=== PATIENT | female | born 1950 | race Caucasian/White ===

== ENCOUNTER → 2016-10-17 | Outpatient (CLI) | payer OTHER ==
[~2016-10-17] MED LIST: ASCA500 PO; ASPCH81X PO; ASPI81TA28 PO; ATEN25TA PO; ATOR-24 PO; BNC/20125 PO; BNC20 PO; CALC500C70 PO; CHOL20007 PO; CHOL500021 PEG; CITA40TA4 PO; CLB/200 PO; CLOB-65 EXT; CYAN1DRO SL; FERR1TAB PO; LEVO88TA3 PO; MAGN250T3 PO; MULT-506 PO; MULT-580 PO; OXYC-57 PO; PREG1CAP36 PO; RXC5 PO; SENNTAB23 PO; SIMV40TA4 PO; TRAM-10 PO; [UNRECOGNIZED DRUG - REMARK] PO
== END | disposition home or self-care (01) ==
LOC: C.CPL 15:13
DX: M75.111 Incomplete rotator cuff tear or rupture of right shoulder, not specified as traumatic (principal)

== ENCOUNTER 2016-11-01 05:01 | Day surgery (SDC) | payer OTHER ==
[2016-10-30 09:41] VITALS: Ht 154.9 cm; Wt 99.0 kg
--- NOTE | 2016-10-30 10:42 | PAT Medication Instructions ---
Service Date Oct 30, 2016. Current Home Medication List Ascorbic Acid (Vitamin C), 1 TAB PO QAM Aspirin (Aspirin Ec), 81 MG PO QAM Atenolol (Tenormin), 25 MG PO QAM Atorvastatin (Lipitor), 40 MG PO QAM Calcium/Vitamin D (Os-Chandana 500 Plus D), 2 TAB PO QAM Celecoxib (CeleBREX), 1 CAP PO DAILY PRN for Pain Cholecalciferol (Vitamin D3), 1 TAB PEG QAM Citalopram (Citalopram Hydrobromide), 1 TAB PO QAM Clobetasol Propionate 0.05% (Temovate 0.05%), 1 APPLN EXT UD PRN for PRN Cyanocobalamin (Vitamin B12), 1 DOSE SL QAM Ferrous Sulfate Dried (Slow Release Iron), 45 MG PO BIWEEKLY Levothyroxine Sodium (Levothyroxine Sodium), 1 TAB PO QAM Magnesium (Magnesium 250 mg), 1 TAB PO QAM Multivitamin (Multivitamin), 1 TAB PO QAM Olmesartan Medoxomil (Benicar), 5 TAB PO QAM Pregabalin (Lyrica), 25 MG PO BID Sennosides-Docusate Sodium (Stool Softener), 1 TAB PO DAILY PRN for Constipation Simvastatin (Zocor), 40 MG PO QPM Tramadol (Ultram), 1-2 TAB PO Q4H PRN for Pain Medication Instructions For Your Scheduled Surgery - Held per surgeon's instructions: Aspirin (Aspirin Ec), 81 MG PO QAM Celecoxib (CeleBREX), 1 CAP PO DAILY PRN for Pain - Hold the following medications 24 hours prior to surgery: Clobetasol Propionate 0.05% (Temovate 0.05%), 1 APPLN EXT UD PRN for PRN - Hold the following medications the morning of surgery: Ascorbic Acid (Vitamin C), 1 TAB PO QAM Calcium/Vitamin D (Os-Chandana 500 Plus D), 2 TAB PO QAM Cholecalciferol (Vitamin D3), 1 TAB PO QAM Cyanocobalamin (Vitamin B12), 1 DOSE SL QAM Ferrous Sulfate Dried (Slow Release Iron), 45 MG PO BIWEEKLY Magnesium (Magnesium 250 mg), 1 TAB PO QAM Multivitamin (Multivitamin), 1 TAB PO QAM Olmesartan Medoxomil (Benicar), 5 TAB PO QAM Sennosides-Docusate Sodium (Stool Softener), 1 TAB PO DAILY PRN for Constipation - Take the following medications the morning of surgery with a sip of water OTHERWISE NOTHING TO EAT OR DRINK AFTER MIDNIGHT: Atenolol (Tenormin), 25 MG PO QAM Levothyroxine Sodium (Levothyroxine Sodium), 1 TAB PO QAM Citalopram (Citalopram Hydrobromide), 1 TAB PO QAM Pregabalin (Lyrica), 25 MG PO BID Tramadol (Ultram), 1-2 TAB PO Q4H PRN for Pain (may take if needed up to 4 hours prior to surgery) - Take the following medications as scheduled the night before surgery: Pregabalin (Lyrica), 25 MG PO BID Simvastatin (Zocor), 40 MG PO QPM Tramadol (Ultram), 1-2 TAB PO Q4H PRN for Pain If you have any questions please call us at [phone] or [phone] or [phone]
[2016-10-30 11:30] LABS: BASO % 0.5 %; BASO ABS # 0.05 K/uL (0-0.2); COMPLETE YES; EOS % 2.3 %; HEMATOCRIT 39.1 % (37-47); IG% 0.2 %; LYMPH % 24.9 %; LYMPH ABS # 2.35 K/uL (1.2-3.4); MEAN CELL VOLUME 86.7 fL (80-100); MEAN CORPUSCULAR HEMOGLOBIN 27.9 pg (25-34); MEAN CORPUSCULAR HGB CONC 32.2 g/dl (32-36); MEAN PLATELET VOLUME 9.4 fL (7.4-10.4); MONO % 7.8 %; NEUT % 64.3 %; PLATELET COUNT 295 K/uL (130-400); RED BLOOD COUNT 4.51 M/uL (4.2-5.4); WHITE BLOOD COUNT 9.44 K/uL (4.8-10.8)
[2016-10-30 11:40] LABS: URINE APPEARANCE CLEAR (CLEAR); URINE BILIRUBIN NEG (NEG); URINE COLOR YELLOW; URINE EPITHELIAL CELL AUTO 20-30 /lpf (0-5); URINE NITRITE NEG (NEG); URINE PH 5.5 (4.5-7.5); URINE SPECIFIC GRAVITY 1.018 (1.000-1.030); UROBILINOGEN NEG (NEG)
[2016-10-30 11:45] LABS: MANUAL MICROSCOPIC REQUIRED? NO; REVIEW REQ? NO
[2016-10-30 11:53] LABS: BUN/CREATININE RATIO 15.7 (10-20); CALCIUM 8.8 mg/dl (8.5-10.1); CREATININE 0.98 mg/dl (0.60-1.20); POTASSIUM 4.3 mmol/L (3.5-5.1)
--- NOTE | 2016-10-31 10:51 | HISTORY & PHYSICAL EXAMINATION ---
DATE OF ADMISSION: 11/01/2016 CHIEF COMPLAINT: Left shoulder pain. HISTORY OF PRESENT ILLNESS: The patient is a 66-year-old female seen and evaluated in our office for left shoulder pain. Initially, she was treated conservatively with a subacromial injection. She continues to have ongoing pain and disability. An MRI was ordered and is concerning for partial thickness versus small full thickness rotator cuff tear. She is now scheduled for left shoulder arthroscopy, subacromial decompression, distal clavicle excision and possible rotator cuff repair. Due to her history of being a difficult intubation, her procedure is to be performed at the hospital. PAST MEDICAL HISTORY: Hypertension, hypercholesterolemia, irregular heartbeat, depression, hypothyroidism, osteoarthritis, obesity. PAST SURGICAL HISTORY: Left hip arthroplasty, gastric bypass, D&C, cystoscopy, cardiac ablation. MEDICATIONS: Levoxyl 88 mcg daily, citalopram 40 mg daily, atenolol 25 mg daily, Benicar 20 mg daily, simvastatin 40 mg daily, multivitamin daily, vitamin B complex daily, calcium daily, aspirin 81 mg daily, vitamin D3 daily, docusate sodium p.r.n., slow release iron daily. ALLERGIES: PENICILLIN CAUSES SWELLING AND REDNESS. SOCIAL HISTORY AND REVIEW OF SYSTEMS: Noncontributory. PHYSICAL EXAMINATION: GENERAL: Well-nourished, well-developed female who appears her stated age. HEAD, EYES, EARS, NOSE, AND THROAT: Normocephalic, atraumatic, extraocular movements intact, oropharynx pink and moist. NECK: Supple without adenopathy. LUNGS: Clear to auscultation bilaterally. HEART: Regular rate and rhythm. ABDOMEN: Soft, nontender, nondistended, obese. EXTREMITIES: The left shoulder demonstrates full active painful range of motion. There is some mild weakness and pain in the rotator cuff with resistive testing. X-RAYS: Her plain films and MRI are reviewed. The MRI is concerning for a partial thickness versus possible small full thickness rotator cuff tear. There is evidence of AC joint arthritis. ASSESSMENT: Left shoulder impingement syndrome, acromioclavicular joint arthritis, possible rotator cuff tear. PLAN: Risks versus benefits were discussed. Consent was obtained. The patient's primary care physician is Josephine Cortes PA-C. Will proceed with left shoulder arthroscopy upon preoperative workup and medical clearance.
[~2016-11-01] VITALS: Ht 154.9 cm; Wt 99.0 kg
[~2016-11-01 05:01] MED LIST changes: -ASPCH81X PO; -ATOR-24 PO; -BNC/20125 PO; -CHOL20007 PO; -CITA40TA4 PO; -MULT-580 PO; -OXYC-57 PO; -PREG1CAP36 PO; -RXC5 PO; -[UNRECOGNIZED DRUG - REMARK] PO
[2016-11-01] MEDS ORDERED: CHOL20007 PO (05:44)
[2016-11-01 05:45] VITALS: PULSE 65; TEMP 36.7; O2SAT 97
[2016-11-01] MEDS ORDERED: CLINDAMYCIN PHOS 150 MG/ML 2 ML VIAL IV SCH (06:00)
[2016-11-01] MEDS ORDERED: LACTATED RINGER'S 1000ML 1,000 ML IV SCH (06:00)
[2016-11-01] MEDS ORDERED: CLINDAMYCIN 600 MG/54 ML D5W IV SCH (06:00)
[2016-11-01] MEDS ORDERED: ROPIVACAINE 0.5% 5 MG/ML 30 ML VIAL ONE (06:16)
[2016-11-01] MEDS ORDERED: BUPIVACAINE/EPINEPHRINE 0.25% 10 ML VIAL ONE (06:17)
[2016-11-01] MEDS ORDERED: CLONIDINE HCL 100 MCG/ML SYRINGE ONE (06:17)
[2016-11-01] MEDS ORDERED: EpINEphrine HCL INJ 1 MG/ML 5ML SYRINGE ONE (06:37)
[2016-11-01] MEDS ORDERED: FENTANYL CITRATE INJ 50 MCG/1 ML 2 ML VIAL ONE (06:45)
[2016-11-01] MEDS ORDERED: MIDAZOLAM HCL 1 MG/ML 2ML VIAL ONE (06:45)
--- NOTE | 2016-11-01 07:02 | History & Physical Bridge Note ---
H&P Re-Evaluation Bridge Note: I have examined the patient, reviewed the History & Physical and in the interval since the performance of the History & Physical I have noted the following changes of clinical significance: No changes noted
[2016-11-01] MEDS ORDERED: DEXAMETHASONE SOD INJ 4 MG/ML VIAL ONE (07:32)
[2016-11-01] MEDS ORDERED: ONDANSETRON INJ 2 MG/ML 2 ML VIAL ONE (07:32)
[2016-11-01] MEDS ORDERED: PROPOFOL IV EMULSION 10 MG/ML 20 ML VIAL IV ONE (07:32)
[2016-11-01] MEDS ORDERED: EpHEDrine SULFATE 50MG/5ML SYR ONE (07:33)
[2016-11-01] MEDS ORDERED: PHENYLEPHRINE 100MCG/ML 5ML SYR ONE (07:35)
[2016-11-01] MEDS ORDERED: SODIUM CHLORIDE 0.9% 1000ML 1,000 ML IV SCH (07:44)
[2016-11-01] MEDS ORDERED: HYDROCODONE/ACETAMOPHEN 5/325MG TAB PO PRN (07:45)
[2016-11-01] MEDS ORDERED: OXYCODONE/ACETAMINOPHEN 5-325 TAB PO PRN (07:45)
[2016-11-01] MEDS ORDERED: OXYC-57 PO (07:46)
--- NOTE | 2016-11-01 07:48 | Discharge Instructions ---
Discharge Instructions Date of Service Nov 01, 2016. Visit Reason for Visit: Left Shoulder Osteoarthritis Discharge Discharge Diagnosis / Problem: Left shoulder impingement syndrome, AC joint arthritis Discharge Goals Goal(s): Decrease discomfort, Improve function Activity Recommendations Activity Limitations: as noted below Lifting Limitations: gradually increase as tolerated Anesthesia . Post Anesthesia Instructions: If you have had General Anesthesia or IV Sedation: * Do not drive today. * Resume driving when surgeon permits. * Do not make important decisions or sign legal documents today. * Call surgeon for: 1. Temperature elevations greater than 101 degrees F. 2. Uncontrollable pain. 3. Excessive bleeding. 4. Persistent nausea and vomiting. 5. Medication intolerance (nausea, vomiting or rash). * For nausea and vomiting use only clear liquids such as: tea, soda, bouillon until nausea subsides, then gradually increase diet as tolerated. * If you have any concerns or questions, call your surgeon's office. If physician is unavailable and it is an emergency, call 911 or go to the nearest emergency room. . Instructions / Follow-Up Instructions / [place] [facility] [place] SHOULDER ARTHROSCOPY with Distal Clavicle Excision SELF CARE INSTRUCTIONS AFTER: A. You are allowed to use your arm actively as comfort allows. Recommend NOT doing repetitive overhead activity or heavy lifting. B. You should start Physical Therapy within 1-3 days from your surgery. You will be provided a prescription with specific restrictions, if needed, at time of discharge. C. You can discontinue the sling as comfort allows within one to two days after surgery. A. At 48 hours post-operatively, you may change your dressing. . (Leave white steri-strips intact if present). Use band-aids and change daily. You are allowed to shower at this time and get the incision area wet, but DO NOT soak or submerge incision area in water. (No baths, swimming pools, hot tubs) B. Do NOT apply soap or any ointment/lotions directly over incision. C. You may use ice as needed to operative shoulder SPECIAL CARE INSTRUCTIONS: VERY IMPORTANT TO READ AND REVIEW A. There are a few signs you need to watch for after you are home. Call [facility] at [phone] if you experience any of the following: a. Increased severe shoulder pain. Some pain is expected especially when you exercise b. Increased swelling in your shoulder or arm; pain or swelling in either upper extremity. (Note: swelling and stiffness is normal and expected for several weeks post op, depending on type of shoulder surgery you had). c. Any fluid or drainage from the incision; redness of the incision. d. Shortness of breath or chest pain. B. Please call [facility] at [phone] if you have any questions or concerns about your operation or recovery. C. Call your physician if: a. Temperature is greater than 101 degrees (F). b. Pain is not relieved by prescribed pain medications. c. Increase drainage or redness from incision. d. Unanswered questions or concerns. D. Pain Medication: a. You will be prescribed pain medication upon discharge that should last till your first post-operative appointment. b. You may also take Advil or Ibuprofen between medication doses if you do not have any contraindication to taking them. c. You may also take Advil or Ibuprofen in place of your pain medication if the pain is tolerable. d. If you experience nausea and/or skin rash, discontinue this medication and contact our office for an alternative medication. e. Caution- narcotic pain medication can cause constipation. FOLLOW UP VISIT: Please call [facility] at [phone] to schedule a follow up appointment 10-14 days from your surgery date. Diet Recommendations Recommended Home Diet: resume previous diet Pending Studies Studies pending at discharge: no Medical Emergencies . Who to Call and When: Medical Emergencies: If at any time you feel your situation is an emergency, please call 911 immediately. . Non-Emergent Contact Non-Emergency issues call your: Surgeon Call Non-Emergent contact if: temperature is above 101.5, your pain is not controlled, wound has increased drainage, wound has increased redness . . "Provider Documentation" section prepared by Marcell Maciel PA-C. . [place] Drug Monitoring Program Search Results: patient reviewed within database, no issues identified
--- NOTE | 2016-11-01 07:59 | [facility] Post Operative Brief Note ---
Immediate Operative Summary Operative Date Nov 01, 2016. Pre-Operative Diagnosis Left Shoulder Impingement Syndrome, Acromioclavicular Joint Arthritis, Possible Rotator Cuff Tear Post-Operative Diagnosis Left Shoulder Impingement Syndrome, Acromioclavicular Joint Arthritis Procedure(s) Performed Left Shoulder Arthroscopic Subacromial Decompression, Distal Clavicle Excision Surgeon Dr. Dave [employer] Surgeon(s) Marcell Maciel PA-C Estimated Blood Loss 10 cc Findings intact rotater cuff, ac djd Specimens none per surgeon Disposition Recovery Room / PACU
--- NOTE | 2016-11-01 08:13 | OPERATIVE REPORT ---
DATE OF OPERATION: 11/01/2016 PREOPERATIVE DIAGNOSIS: Impingement syndrome and acromioclavicular arthritis, left shoulder. POSTOPERATIVE DIAGNOSIS: Impingement syndrome and acromioclavicular arthritis, left shoulder. PROCEDURE: Arthroscopic subacromial decompression and distal clavicle excision, left shoulder. SURGEON: Dr. Dave. [employer] FORMER SUPERVISOR: Marcell Maciel PA-C. ANESTHESIA: General. COMPLICATIONS: None. Marcell Maciel was the prosthetic assistant in this procedure. He was essential for all portions of the case including positioning, prepping, draping, engineer third assistant, wound closure and dressing application. DESCRIPTION OF PROCEDURE: First a posterolateral incision was used for insertion of the arthroscope. Intra-articular elements were identified. Long head of biceps was intact. Glenohumeral joint was intact and the undersurface rotator cuff showed minimal tendonitis. The arthroscope was then placed in subacromial space where moderate bursitis was encountered. Bursectomy was carried out using 90 degree ablator and a 5.5 mm iqra was used to perform arthroscopic subacromial decompression. Next, the AC joint was inspected and the last centimeter of the distal clavicle was excised using a 5.5 mm iqra creating the distal clavicle excision. The shoulder was drained of excess fluid. Wounds were closed using 4-0 nylon simple sutures. Sterile dressing of Adaptic, 4x4s, ABDs and foam tape was applied. The patient was placed in a sling. She tolerated the procedure well. I attest to the content of the Intraoperative Record and any orders documented therein. Any exception s are noted below.
[2016-11-01 08:55] VITALS: BP 134/80; PULSE 68; TEMP 36.7; O2SAT 96
--- NOTE | 2016-11-01 08:55 | Anesthesiology Progress Note ---
Anesthesia Post Op Note Date & Time Nov 01, 2016 at 08:55 Vital Signs Pain Intensity: 0 Vital Signs Past 12 Hours Date Time Temp Pulse Resp B/P (MAP) Pulse Ox O2 Delivery O2 Flow Rate FiO2 11/01/16 08:47 70 19 11/01/16 08:47 36.2 11/01/16 08:47 70 19 96 11/01/16 08:46 122/79 11/01/16 08:42 70 16 96 11/01/16 08:42 70 16 11/01/16 08:41 125/75 11/01/16 08:37 72 28 11/01/16 08:37 72 28 97 11/01/16 08:36 129/76 11/01/16 08:32 73 21 11/01/16 08:32 72 21 99 11/01/16 08:31 130/75 11/01/16 08:27 75 21 100 11/01/16 08:27 74 21 11/01/16 08:26 131/80 11/01/16 08:22 73 24 11/01/16 08:22 72 24 100 11/01/16 08:21 131/69 11/01/16 08:20 72 17 100 11/01/16 08:20 71 17 100 11/01/16 08:16 119/97 11/01/16 08:15 73 12 11/01/16 08:15 73 12 11/01/16 08:11 128/78 11/01/16 08:10 73 22 100 11/01/16 08:10 73 22 11/01/16 08:06 134/89 11/01/16 08:05 35.9 79 16 134/89 100 Mask 10 11/01/16 08:05 78 21 100 11/01/16 08:05 77 21 11/01/16 05:45 36.7 65 20 97 Room Air Notes Mental Status: alert / awake / arousable, participated in evaluation Pt Amnestic to Procedure: Yes Nausea / Vomiting: adequately controlled Pain: adequately controlled Airway Patency, RR, SpO2: stable & adequate BP & HR: stable & adequate Hydration State: stable & adequate Anesthetic Complications: no major complications apparent
[2016-11-01] MEDS ORDERED: LABETALOL HCL IV 5 MG/ML 20ML IV PRN (09:00)
[2016-11-01] MEDS ORDERED: NALOXONE HCL 0.4 MG/1 ML VIAL/CARP IV PRN (09:00)
[2016-11-01] MEDS ORDERED: EpHEDrine SULFATE INJ 50 MG/ML AMP IV PRN (09:00)
[2016-11-01] MEDS ORDERED: PHENYLEPHRINE 100MCG/ML 5ML SYR IV PRN (09:00)
[2016-11-01] MEDS ORDERED: HYDROmorphone INJ 2 MG/ML SYR/VIAL IV PRN (09:00)
[2016-11-01] MEDS ORDERED: FLUMAZENIL 0.1 MG/1 ML 10 ML VIAL IV PRN (09:00)
[2016-11-01] MEDS ORDERED: FENTANYL CITRATE INJ 50 MCG/1 ML 2 ML VIAL IV PRN (09:00)
[2016-11-01] MEDS ORDERED: MEPERIDINE HCL 25 MG/ML CARP IV PRN (09:00)
[2016-11-01] MEDS ORDERED: ATROPINE SULFATE 0.1 MG/ML 5ML SYR IV PRN (09:00)
[2016-11-01] MEDS ORDERED: ONDANSETRON INJ 2 MG/ML 2 ML VIAL IV PRN (09:00)
[2016-11-01 09:25] VITALS: BP 166/84; PULSE 78; O2SAT 97
[2016-11-01 09:55] VITALS: BP 166/84; PULSE 74; TEMP 36.7; O2SAT 98
== END 2016-11-01 10:00 | disposition home or self-care (01) ==
LOC: C.ACU 05:01
DX: M75.42 Impingement syndrome of left shoulder (principal); M19.012 Primary osteoarthritis, left shoulder; I10 Essential (primary) hypertension; E78.00 Pure hypercholesterolemia, unspecified; E03.9 Hypothyroidism, unspecified; E66.9 Obesity, unspecified; Z96.642 Presence of left artificial hip joint; Z98.84 Bariatric surgery status; I49.9 Cardiac arrhythmia, unspecified; Z79.82 Long term (current) use of aspirin; G47.33 Obstructive sleep apnea (adult) (pediatric); E78.5 Hyperlipidemia, unspecified; Z87.442 Personal history of urinary calculi

== ENCOUNTER 2018-06-03 06:27 | Inpatient (IN) ==
--- NOTE | 2018-04-14 09:03 | PAT Medication Instructions ---
Medication Instructions Date of Service April 14, 2018 Home Medications ascorbic acid (vitamin C) 500 mg PO DAILY aspirin [Aspir-Low] 81 mg PO DAILY atenolol 25 mg PO QAM atorvastatin 40 mg PO PM biotin 2,500 mcg PO DAILY calcium carbonate-vitamin D3 [Calcium 600 + D(3)] 1 cap PO DAILY celecoxib 200 mg PO QAM clindamycin HCl 300 mg PO NEEDED clobetasol 1 applic TOPICAL BID NEEDED cyanocobalamin (vitamin B-12) 1,000 mcg PO DAILY docusate sodium [Stool Softener] 100 mg PO DAILY NEEDED duloxetine 2 tab PO HS duloxetine 1 tab PO QAM ferrous sulfate [iron] 325 mg PO DAILY levothyroxine 88 mcg PO QAM magnesium 250 mg PO DAILY multivitamin with minerals 1 cap PO DAILY olmesartan [Benicar] 10 mg PO QAM pregabalin [Lyrica] 50 mg PO PM Continue as directed clindamycin HCl 300 mg PO NEEDED ASK your surgeon for instructions celecoxib 200 mg PO QAM STOP taking 2 weeks before surgery biotin 2,500 mcg PO DAILY STOP taking 24 hours before surgery clobetasol 1 applic TOPICAL BID NEEDED DO NOT take the morning of surgery ascorbic acid (vitamin C) 500 mg PO DAILY aspirin [Aspir-Low] 81 mg PO DAILY calcium carbonate-vitamin D3 [Calcium 600 + D(3)] 1 cap PO DAILY cyanocobalamin (vitamin B-12) 1,000 mcg PO DAILY docusate sodium [Stool Softener] 100 mg PO DAILY NEEDED ferrous sulfate [iron] 325 mg PO DAILY magnesium 250 mg PO DAILY multivitamin with minerals 1 cap PO DAILY olmesartan [Benicar] 10 mg PO QAM Take morning of surgery With a small sip of water, OTHERWISE NOTHING TO EAT OR DRINK AFTER MIDNIGHT: atenolol 25 mg PO QAM duloxetine 1 tab PO QAM levothyroxine 88 mcg PO QAM Take evening before surgery atorvastatin 40 mg PO PM duloxetine 2 tab PO HS pregabalin [Lyrica] 50 mg PO PM Other Notes If you have any questions please call us at [phone] or [phone] or [phone] or [phone]
--- NOTE | 2018-04-14 11:56 | Anesthesiology Consultation ---
Date of Service April 14, 2018 Assessment & Plan (1) Encounter for pre-operative examination: Chart Review Chart Review: Pending: Refer to Additional Notes / Consult section and Patient seen in Pre Admission Testing Consults Requested medical & cardiac (Dr. Cortes (04/07) and Cardiology (04/25)) Teaching & Discussion Pre-Anesthesia Teaching/Discussion Notes: Instructed NPO after midnight before surgery, except medications with 15 cc of water. Medication instructions provided according to the PAT guidelines. History Surgery Operation Date: 05/06/18 09:15 Proposed Procedures p Right Total Hip Arthroplasty - Octavio Jung DO Height/Weight Height: 5 ft 1 in Weight: 105.7 kg Allergies Allergy/AdvReac Type Severity Reaction Status Date / Time gabapentin AdvReac Mild light Verified 03/07/18 08:30 headed and dizzy Penicillins AdvReac Mild LOCALIZED Verified 03/07/18 08:30 RXN TO INJECTION, TOLERATED PO DOSING Medications Home Medications Medication Instructions Recorded Confirmed Last Taken ascorbic acid (vitamin C) [Vitamin 500 mg PO DAILY 03/07/18 03/07/18 Unknown C] aspirin [Aspir-Low] 81 mg PO DAILY 03/07/18 03/07/18 Unknown atenolol 25 mg PO QAM 03/07/18 03/07/18 Unknown atorvastatin 40 mg PO PM 03/07/18 03/07/18 Unknown biotin 2,500 mcg PO DAILY 03/07/18 03/07/18 Unknown calcium carbonate-vitamin D3 1 cap PO DAILY 03/07/18 03/07/18 Unknown [Calcium 600 + D(3)] celecoxib 200 mg PO QAM 03/07/18 03/07/18 Unknown clindamycin HCl 300 mg PO UD PRN 03/07/18 03/07/18 Unknown clobetasol 1 applic TOPICAL BID PRN 03/07/18 03/07/18 Unknown cyanocobalamin (vitamin B-12) 1,000 mcg PO DAILY 03/07/18 03/07/18 Unknown docusate sodium [Stool Softener] 100 mg PO DAILY PRN 03/07/18 03/07/18 Unknown duloxetine 1 tab PO QAM 03/07/18 04/14/18 Unknown duloxetine 2 tab PO HS 03/07/18 03/07/18 Unknown ferrous sulfate [iron] 325 mg PO DAILY 03/07/18 03/07/18 Unknown levothyroxine 88 mcg PO QAM 03/07/18 03/07/18 Unknown magnesium 250 mg PO DAILY 03/07/18 03/07/18 Unknown multivitamin with minerals 1 cap PO DAILY 03/07/18 03/07/18 Unknown olmesartan [Benicar] 10 mg PO QAM 03/07/18 03/07/18 Unknown pregabalin [Lyrica] 50 mg PO PM 03/07/18 03/07/18 Unknown Past Medical History Medical History Anxiety Atrial fibrillation Depression Hyperlipidemia Hypertension Hypothyroidism Osteoarthritis Peripheral neuropathy Restless leg syndrome Sleep apnea NO DEVICE CURRENTLY "LOST WEIGHT" Spinal stenosis Past Family History Family History Brother Family history of diabetes mellitus Past Surgical History Surgical History Cyst REMOVED ON LEFT EYE Difficult airway for intubation "NOTED TO HAVE DIFFICULTY INTUBATING DURING NODULE REMOVAL BEHIND EAR" PT BELIEVES D/T BEING OVERWEIGHT AT TIME OR SURGERY H/O gastric bypass 2004 History of cardiac radiofrequency ablation 2006 (2 ABLATIONS) AT [facility] History of colonoscopy History of cystoscopy HX OF STRETCHING OF URETHRA History of dilatation and curettage History of ear surgery NODULE REMOVED BEHIND EAR History of shoulder surgery LEFT History of tooth extraction History of total hip arthroplasty LEFT Past Anesthesia History No Hx of Anesthesia Complications, Difficult Airway (Unsure of date or hospital - Knows it was late s or early ) and No Family Hx of Anesthesia Complications History of PONV No Motion Sickness Screening History of Motion Sickness: No Social History Smoking Status: Never smoker Do You Dip or Chew Tobacco: No Hx Alcohol Use: Yes Alcohol type: hard liquor alcohol intake frequency: holidays/special occasions only Hx Substance Use: No substance use type: does not use Exercise / Class Metabolic Activity II 4-5 Yardwork/Stairs/Walk up hill (Able to climb FOS. Denies CP or SOB.) Review of Systems Patient denies chest pain, shortness of breath, dyspnea on exertion, reflux, cough, wheezing, palpitations. +joint pain (knees, hip, wrist) Physical Exam Vital Signs BP: 132/82 P: 57 R: 14 T: 97.4 SPO2: 97% on RA Constitutional + morbidly obese ENMT Thyromental Distance: > or= 3.5 Finger Breadths (4) Mallampati Class: III Neck normal visual inspection, trachea midline and + limited neck extension Respiratory normal respiratory effort Auscultation: lungs clear to auscultation bilaterally Cardiovascular Rate/Rhythm: regular rate and regular rhythm Heart Sounds: no murmur Vessels: no carotid bruit Neurologic moves all extremities Psychiatric Orientation: alert and oriented x 3 Testing Electrocardiogram Date: 04/14/18 Findings: + NSR @ (61) Chest X-Ray Date: 04/14/18 Findings: + NAD Laboratory Results 04/14/18 11:42 04/14/18 11:42 Blood Type A Positive 04/14/18 11:42 Antibody Screen NEGATIVE 04/14/18 11:42 PT 9.8 Seconds (9.0-12.0) 04/14/18 11:42 INR 1.0 (0.9-1.1) 04/14/18 11:42 APTT 24.5 Seconds (21.0-31.0) 04/14/18 11:42 Hemoglobin A1c 5.9 % (4.5-5.6) H 04/14/18 11:42 Urine Color Yellow 04/14/18 Unknown Urine Appearance Clear (Clear) 04/14/18 Unknown Urine pH 6.0 (4.5-7.5) 04/14/18 Unknown Ur Specific [place] 1.009 (1.000-1.030) 04/14/18 Unknown Urine Protein Negative (Negative) 04/14/18 Unknown Urine Glucose (UA) Negative (Negative) 04/14/18 Unknown Urine Ketones Negative (Negative) 04/14/18 Unknown Urine Nitrite Negative (Negative) 04/14/18 Unknown Ur Leukocyte Esterase 3+ (Negative) H 04/14/18 Unknown Urine WBC (Auto) 10-30 /hpf (0-5) H 04/14/18 Unknown Urine RBC (Auto) 0-4 /hpf (0-4) 04/14/18 Unknown U Hyaline Cast (Auto) 0 /lpf (0-5) 04/14/18 Unknown U Epithel Cells (Auto) 20-30 /lpf (0-5) H 04/14/18 Unknown Urine Bacteria (Auto) Negative (Negative) 04/14/18 Unknown 04/14/18 Unknown Urine Culture - Preliminary Urine,Clean Catch Alpha strep. not enterococcus
[2018-04-14 12:05] LABS: Basophils # (auto) 0.02 K/uL (0-0.2); Basophils % (auto) 0.3 %; Eosinophils # (auto) 0.24 K/uL (0-0.5); Eosinophils % (auto) 3.2 %; Hematocrit (blood only) 40.6 % (37-47); Hemoglobin 12.8 g/dL (12.0-16.0); Immature Granulocytes # (auto) 0.01 K/uL (0.00-0.02); Immature Granulocytes % (auto) 0.1 %; Lymphocytes # (auto) 1.82 K/uL (1.2-3.4); Mean Corpuscular Hgb Conc 31.5 g/dL (32-36); Mean Corpuscular Volume 89.6 fL (80-100); Mean Platelet Volume 9.5 fL (7.4-10.4); Monocytes # (auto) 0.53 K/uL (0.11-0.59); Neutrophils # (auto) 4.96 K/uL (1.4-6.5); Neutrophils % (auto) 65.4 %; Platelet Count 215 K/uL (130-400); RDW Coefficient of Variation 13.6 % (11.5-14.5); Red Blood Count 4.53 M/uL (4.2-5.4); White Blood Count 7.58 K/uL (4.8-10.8)
[2018-04-14 12:17] LABS: Partial Thromboplastin Ratio 0.9; Partial Thromboplastin Time 24.5 Seconds (21.0-31.0); Prothrombin Time 9.8 Seconds (9.0-12.0)
[2018-04-14 12:38] LABS: Estimated Average Glucose 123 mg/dl; Hemoglobin A1C 5.9 % (4.5-5.6)
[2018-04-14 13:14] LABS: Appearance Urine Clear (Clear); Bacteria Urine Automated Negative (Negative); Bilirubin Urine Negative (Negative); Blood Urine Negative (Negative); Cast Urine Automated 0 /lpf (0-5); Color Urine Yellow; Epithelial Cell Urine Auto 20-30 /lpf (0-5); Glucose Urine UA Negative (Negative); Ketones Urine Negative (Negative); Leukocyte Esterase Urine 3+ (Negative); Nitrite Urine Negative (Negative); Protein Urine Negative (Negative); RBC Urine Automated 0-4 /hpf (0-4); Specific Gravity Urine 1.009 (1.000-1.030); Urobilinogen Urine Negative (Negative)
--- NOTE | 2018-04-14 13:15 | XRay Report ---
XR chest Pre-admission PA/Lat CLINICAL HISTORY: pat preoperative evaluation COMPARISON STUDY: No previous studies for comparison. FINDINGS: The bones soft tissues and hemidiaphragms are normal. The cardiomediastinal silhouette is n ormal. The lungs are clear. The pulmonary vasculature is normal. IMPRESSION: Negative chest. The above report was generated using voice recognition software. It may contain grammatical, syntax or spelling errors. Electronically signed by: Ed Forrester M.D. 04/14/2018 1:13 PM
[2018-04-14 13:18] LABS: BUN Creatinine Ratio 19.1 (10-20); Calcium 8.5 mg/dl (8.5-10.1); Creatinine Clr Calc Pharmacy 73.8 ml/min; Est GFR (African American) 83.9; Est GFR (Non-African American) 72.4; Potassium 4.1 mmol/L (3.5-5.1)
--- NOTE | 2018-06-02 15:10 | History & Physical Report ---
Date of Service June 02, 2018 Assessment & Plan (1) Degenerative joint disease (DJD) of hip: I have indicated the patient for right posterior total hip replacement. The risks, benefits and complications of surgery were explained to the patient which include but not limited to infection, acute blood loss, DVT/PE, injury to nerves, vessels, bone, soft tissue, arthrofibrosis, chronic pain, failure of the prosthesis, hip dislocation, leg length discrepancy, need for additional surgery, cardiac and pulmonary events and . The patient wished to proceed with surgery and informed consent was obtained at this time. We will plan for ASA BID post-operatively for DVT prophylaxis. Upon discharge the patient will be discharged home with home health services. Appropriate clearances by PCP, Cardio were obtained. History of Present Illness Chief Complaint: Right hip pain/djd Primary Care Provider: HAZEL Braxton The patient is a 67 year old female who presents with complaints of severe right hip pain and DJD. The patient has failed outpatient conservative treatments to this point which included Nsaids, [place] corticosteroid inj, home exercise/walking program. The patient's pain and limited function have progressed to the point where they severely hinder their activities of daily living and they no longer tolerate exercise programs. They are requesting to proceed with total hip replacement surgery. Allergies Allergy/AdvReac Type Severity Reaction Status Date / Time gabapentin AdvReac Mild light Verified 05/23/18 08:44 headed and dizzy Penicillins AdvReac Mild LOCALIZED Verified 05/23/18 08:44 RXN TO INJECTION, TOLERATED PO DOSING Home Medications Home Medications Medication Instructions Recorded Confirmed Type ascorbic acid (vitamin C) [Vitamin 500 mg PO DAILY 03/07/18 05/23/18 History C] aspirin [Aspir-Low] 81 mg PO DAILY 03/07/18 05/23/18 History atenolol 25 mg PO QAM 03/07/18 05/23/18 History atorvastatin 40 mg PO PM 03/07/18 05/23/18 History biotin 2,500 mcg PO DAILY 03/07/18 05/23/18 History calcium carbonate-vitamin D3 1 cap PO DAILY 03/07/18 05/23/18 History [Calcium 600 + D(3)] celecoxib 200 mg PO QAM 03/07/18 05/23/18 History clindamycin HCl 300 mg PO UD PRN 03/07/18 05/23/18 History clobetasol 1 applic TOPICAL BID PRN 03/07/18 05/23/18 History cyanocobalamin (vitamin B-12) 1,000 mcg PO DAILY 03/07/18 05/23/18 History docusate sodium [Stool Softener] 100 mg PO DAILY PRN 03/07/18 05/23/18 History duloxetine 1 tab PO QAM 03/07/18 05/23/18 History duloxetine 2 tab PO HS 03/07/18 05/23/18 History ferrous sulfate [iron] 325 mg PO DAILY 03/07/18 05/23/18 History levothyroxine 88 mcg PO QAM 03/07/18 05/23/18 History magnesium 250 mg PO DAILY 03/07/18 05/23/18 History multivitamin with minerals 1 cap PO DAILY 03/07/18 05/23/18 History olmesartan [Benicar] 10 mg PO QAM 03/07/18 05/23/18 History pregabalin [Lyrica] 50 mg PO PM 03/07/18 05/23/18 History Past Med/Surg History Medical History Anxiety Atrial fibrillation Depression Hyperlipidemia Hypertension Hypothyroidism Osteoarthritis Peripheral neuropathy Restless leg syndrome Sleep apnea NO DEVICE CURRENTLY "LOST WEIGHT" Spinal stenosis Surgical History Cyst REMOVED ON LEFT EYE Difficult airway for intubation "NOTED TO HAVE DIFFICULTY INTUBATING DURING NODULE REMOVAL BEHIND EAR" PT BELIEVES D/T BEING OVERWEIGHT AT TIME OR SURGERY H/O gastric bypass 2004 History of cardiac radiofrequency ablation 2006 (2 ABLATIONS) AT 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 Constitutional: WD/WN, vitals as above Eyes: PERRL, conjunctivae normal, anicteric sclerae ENMT: external ear and nose normal, oropharynx normal Neck: trachea midline, no thyromegaly Respiratory: normal respiratory effort, lungs clear to auscultation Cardiovascular: RRR, no murmur, no edema Gastrointestinal (Abdomen): normal bowel sounds, soft, nontender, no hepatosplenomegaly Musculoskeletal: no cyanosis or clubbing, extremities motor strength 5/5 Skin: no rashes, warm and dry Neurologic: patellar DTR's 2+ bilat, sensation intact Psychiatric: A+Ox3, euthymic affect Lymphatic: no cervical or axillary lymphadenopathy Results & Data Diagnostic Findings Multiple views of the hip demonstrates severe DJD with complete loss of the joint space. +osteophytes, +sclerosis, +subchondral cysts.
[~2018-06-03 06:27] MED LIST changes: +ACETAMINOPHEN 500 MG TAB PO SCH; -ASCA500 PO; -ASPI81TA28 PO; -ATEN25TA PO; -BNC20 PO; -CALC500C70 PO; -CHOL500021 PEG; -CLB/200 PO; +CLINDAMYCIN 600 MG/54 ML BAG IV SCH; -CLOB-65 EXT; -CYAN1DRO SL; +CeleBREX 200 MG CAP PO SCH; +FAMOTIDINE 20 MG TAB PO SCH; -FERR1TAB PO; -LEVO88TA3 PO; +LR 500ML BOLUS, THEN 15ML/HR IV SCH; -MAGN250T3 PO; -MULT-506 PO; +ROPIVACAINE 0.5% HCL/PF 150 MG, BUPIVACAINE 0.5% MPF 30 ML, EPINEPHrine 30MG/30ML (OR U... INFIL SCH; -SENNTAB23 PO; -SIMV40TA4 PO; -TRAM-10 PO; +TRANEXAMIC ACID 1,000 MG **IV Intra-op IV SCH; +TRANEXAMIC ACID 1,000 MG **IV Pre-op IV SCH; +dexAMETHasone 4 MG TAB PO SCH
[2018-06-03] MEDS ORDERED: TRANEXAMIC ACID 1,000 MG **IV Intra-op IV SCH (06:30)
[2018-06-03] MEDS ORDERED: fentaNYL citrate 100 MCG/2 ML VIAL ONE (06:34)
[2018-06-03] MEDS ORDERED: MIDAZOLAM HCL 1 MG/ML 2ML VIAL ONE ×2 (06:34→10:48)
[2018-06-03] MEDS ORDERED: BUPIVACAINE 0.5 % 5 MG/1 ML PF 10ML VIAL ONE (06:38)
[2018-06-03] MEDS ORDERED: POVIDONE-IODINE OP SOLN 30 ML BTL ONE (06:52)
[2018-06-03] MEDS ORDERED: BACITRACIN INJ 50,000 UNIT VIAL ONE (06:52)
--- NOTE | 2018-06-03 07:00 | History & Physical Bridge Note ---
Date of Service June 03, 2018 History & Physical Bridge Note I have examined the patient, reviewed the History & Physical and in the interval since the performance of the History & Physical I have noted the following changes of clinical significance: no changes noted
[2018-06-03] MEDS ORDERED: FAMOTIDINE 20 MG TAB ONE (08:07)
[2018-06-03] MEDS ORDERED: ePHEDrine sulfate 50 MG/ML AMP IV PRN (09:00)
[2018-06-03] MEDS ORDERED: ATROPINE SULFATE 0.1 MG/ML 10ML SYR IV PRN (09:00)
[2018-06-03] MEDS ORDERED: HYDROmorphone INJ 1 MG/ML SYRINGE IV PRN (09:00)
[2018-06-03] MEDS ORDERED: PROPOFOL IV EMULSION 10 MG/ML 20 ML VIAL IV ONE (09:15)
[2018-06-03] MEDS: ORTHO JOINT ANESTHETIC ONE ×2 (11:07→13:35)
--- NOTE | 2018-06-03 11:29 | Post Operative Brief Note ---
Immediate Post Op Note v1 Date of Surgery June 03, 2018 Pre & Post Diagnosis Operation Date: 06/03/18 09:20 Pre-Op Diagnosis: Right Hip Osteoarthritis Post-Op Diagnosis: Right Hip Osteoarthritis Procedure Operation Date: 06/03/18 09:20 Actual Procedures p Right Total Hip Arthroplasty, Uncemented(Right) - Octavio Jung DO Surgeon Octavio Jung DO Physician Office Secretary Torsten Fonseca Estimated Blood Loss 185 Findings Consistent with Post-Op Diagnosis Fluids 1400 cc LR Specimens femoral head Anesthesia Type Spinal MAC Complications none Disposition Disposition: Recovery Room Overlapping Procedure I was present for: the critical portions of procedure. I was immediately available: during the entire case. Back up surgeon: was not required during procedure.
--- NOTE | 2018-06-03 11:45 | Operative Report ---
Post Operative Report Pre & Post Diagnosis Operation Date: 06/03/18 09:20 Pre-Op Diagnosis: Right Hip Osteoarthritis Post-Op Diagnosis: Right Hip Osteoarthritis Procedure Operation Date: 06/03/18 09:20 Actual Procedures p Right Total Hip Arthroplasty, Uncemented(Right) - Octavio Jung DO Surgeon Octavio Jung DO [place] Torsten Fonseca Estimated Blood Loss 185 Findings Consistent with Post-Op Diagnosis Specimens femoral head Anesthesia Type Spinal MAC Complications none Disposition Disposition: Recovery Room Indications The patient is a 67-year-old female who presents with severe progressive right hip DJD who has failed outpatient conservative treatments. I indicated the patient for a total hip replacement and the risks and benefits were explained in detail which included but not limited to infection, bleeding, blood clot, damage to surrounding bone, nerves, vessels, soft tissue, hip dislocation, failure of the prosthesis, leg length discrepancy, need for additional surgery and . The patient agreed to proceed with replacement of the hip and informed consent was obtained. Appropriate clearances were obtained. Description of Procedure Following induction of adequate spinal anesthesia, the patient was transferred to the OR table and placed in lateral decubitus position with left hip down. The right hip was prepped and draped in the typical sterile fashion. A timeout was performed, patient identified site no confirmed, appropriate antibiotics given and a posterolateral/[place] incision was made. Subcutaneous tissue was sharply dissected. Electrocautery was utilized for hemostasis. The fascia was incised throughout the length of the wound and retracted with the Charnley retractor. The bursa was taken down and the short external rotators were identified. The piriformis was tagged with #1 Vicryl. The short external rotators and capsule were divided from the posterior aspect of the femur using electrocautery. The posterior capsule was tagged with #1 Vicryl. Both external rotators and posterior capsule were swept posterior and protected, along with protecting the sciatic nerve. The hip was dislocated by flexion and internally rotation in a controlled manner and exposure of the femoral neck was gained with an old-style Hohmann and a blunt cobra retractor. A femoral cutting guide was utilized for making the appropriate level femoral neck cut with reciprocating saw. The femoral head was removed, measured and reserved on the back table. Next, attention was turned to the acetabulum. A posterior and anterior offset retractor was placed to gain adequate exposure. Acetabular labrum as well as posterior capsule elements were removed using electrocautery and forceps. Fovea centralis was cleared of all soft tissue. Sequential reaming was performed starting at 44 mm and carried up to a 49 mm and decision was made to proceed with impaction of a 50 mm trabecular metal cup. This was impacted and held using a single 35 mm bone screw. The trial acetabular liner was placed at this time. Next, attention was turned to the proximal femur where a Bovie and pickup was used to further clear short external rotators from their insertion on the femur. Box osteotome and canal finder was used to gain access to the femoral canal and the lateral reamer on power was used to further open the proximal lateral canal. Sequentially rasping was carried up to a 12.5 which gave good fit and fill of the proximal femur. A trial reduction was carried out with a reduced standard offset femoral neck component a 36+0 mm femoral head. The trial reduction was stable in all degrees of rotation with no [id number] impingement. The hip was dislocated, trial components were removed and access to the acetabulum was re-established. The t rial liner was removed and the cup was irrigated to ensure all debris was removed. The final acetabular liner was inserted and properly seated in the cup. Access to the femur was once more gained and the size 12.5 femoral stem with standard reduce offset was impacted into position. The hip was once more assessed with the 36+0 mm femoral head. Stability was accessed and found to be excellent with equal leg lengths. The hip was dislocated for the last time and the final 36+0 ceramic femoral head was impacted in place and the hip was reduced. Range of motion was checked once again and found to be stable. The wound was copiously irrigated with sterile saline solution. The roly-incisional soft tissue was injected utilizing [place] ortho mix which includes a combination of Ropivicaine 0.5% 150mg, Bupivicaine 0.5%/Epinephrine 1:200,000 30ml, Toradol 30mg, Dexamethasone 4mg, Ketamine 10mg, Clonidine 100mcg and NSS 30ml Orthomix solution. The piriformis, external rotators and capsule were repaired to the greater trochanter through bone tunnels using #5 FiberWire. The fascia was closed using #1 Vicryl, subcutaneous tissue was closed using 2-0 Vicryl, and skin was closed with 3-0 V-lock suture and Sutures. Sterile dressings were applied which included Iliana negative preasure dressing. The patient tolerated the procedure well and was transported to PACU in stable condition. Due to the complex nature of the procedure, the entire surgery was performed with the operational assistance of Torsten Fonseca PA-C. The blood donor unit assistant, under direct supervision, was involved in the actual performance of all aspects of the surgical procedure including patient positioning, hemostasis, tissue retraction, instrument management and wound closure. I attest to the content of the Intraoperative Record and any orders documented therein. Any exceptions are noted below.
--- NOTE | 2018-06-03 12:28 | XRay Report ---
XR hip 1V RT w pelvis CLINICAL HISTORY: Postop hip arthroplasty COMPARISON: 08/29/2015 DISCUSSION: Again evident is a total left hip arthroplasty. There is evidence for interval total righ t hip arthroplasty. The femoral and acetabular components appear well seated. There is no dislocation . There are overlying skin alison. There is aortic the soft tissues consistent with recent surgery. IMPRESSION: Postsurgical changes of a total right hip arthroplasty. No complicating features identifi ed. Electronically signed by: Matthew Xiong M.D. 06/03/2018 12:27 PM
[2018-06-03] MEDS ORDERED: BISACODYL 10 MG SUPP PR PRN (12:59)
[2018-06-03] MEDS ORDERED: ONDANSETRON INJ 2 MG/ML 2 ML VIAL IV PRN (12:59)
[2018-06-03] MEDS ORDERED: HYDROmorphone INJ 0.5 MG/0.5 ML SYR IV PRN (12:59)
[2018-06-03] MEDS ORDERED: NALOXONE HCL 0.4 MG/1 ML VIAL/CARP IV PRN (12:59)
[2018-06-03] MEDS ORDERED: METOCLOPRAMIDE HCL INJ 5 MG/ML 2 ML VIAL IV PRN (12:59)
[2018-06-03] MEDS ORDERED: MAGNESIUM HYDROXIDE SUSP 30 ML UDC PO PRN (12:59)
--- NOTE | 2018-06-03 13:15 | Orthopedic Progress Note ---
Date of Service June 03, 2018 Assessment & Plan (1) Degenerative joint disease (DJD) of hip: Status post right posterior total hip arthroplasty -Ancef x24 -DVT prophylaxis ASA twice daily, SCDs and teds -Weight-bear as tolerated right lower extremity -Posterior hip precautions -Postoperative x-ray demonstrates a well aligned well fixed orthopedic prosthesis without evidence of fracture dislocation -A.m. labs -DC planning home with home health Subjective Post Operative Progress Note Patient seen in PACU, comfortable, denies complaints, pain well controlled, no acute issues. Patient still under the effects of spinal anesthesia. Physical Exam Vital Signs (Past 24 Hours): Last Vital Signs Temp 36.4 C L 06/03/18 12:59 Pulse 55 L 06/03/18 12:59 Resp 16 06/03/18 12:59 BP 155/75 H 06/03/18 12:59 Pulse Ox 100 06/03/18 12:59 Physical Exam: Physical exam limited secondary to spinal anesthesia, dressing clean dry and intact, decreased sensation bilateral lower extremities, +2 dorsalis pedis pulse. Compartments soft nontender. Constitutional: WD/WN, vitals as above Eyes: PERRL, conjunctivae normal, anicteric sclerae ENMT: external ear and nose normal, oropharynx normal Neck: trachea midline, no thyromegaly Respiratory: normal respiratory effort, lungs clear to auscultation Cardiovascular: RRR, no murmur, no edema Gastrointestinal (Abdomen): normal bowel sounds, soft, nontender, no hepatos plenomegaly Musculoskeletal: no cyanosis or clubbing, extremities motor strength 5/5 Skin: no rashes, warm and dry Neurologic: patellar DTR's 2+ bilat, sensation intact Psychiatric: A+Ox3, euthymic affect Lymphatic: no cervical or axillary lymphadenopathy
[2018-06-03] MEDS: CEFAZOLIN 2000MG 2,000 MG/15 ML SYR IV SCH ×2 (14:24→21:49)
--- NOTE | 2018-06-03 15:01 | Anesthesiology Progress Note ---
Date of Service June 03, 2018 Anesthesia Post Procedure Vital Signs Vital Signs: Temp Pulse Pulse Resp BP Pulse Ox 06/03/18 14:10 18 155/76 H 100 06/03/18 13:45 18 145/78 H 06/03/18 12:59 36.4 C L 55 L 16 155/75 H 100 06/03/18 12:45 54 L 18 145/69 H 100 06/03/18 12:30 36.6 C 55 L 16 131/68 100 06/03/18 12:20 57 L 23 142/70 H 100 06/03/18 12:10 64 14 136/69 100 06/03/18 12:00 36.4 C L 58 L 15 140/78 100 06/03/18 07:40 36.7 C 69 20 154/76 H 99 Notes Mental Status: alert / awake / arousable Patient Amnestic to Procedure: Yes Nausea / Vomiting: adequately controlled Pain: adequately controlled Airway Patency, RR, SpO2: stable & adequate BP & HR: stable & adequate Hydration State: stable & adequate Anesthetic Complications: no major complications apparent and Pt Satisfied with anesthetic care
[2018-06-03] MEDS: SODIUM CHLORIDE 0.9% 1000ML 1,000 ML IV SCH (16:25)
[2018-06-03] MEDS: ACETAMINOPHEN 500 MG TAB PO SCH (16:26)
[2018-06-03] MEDS: KETOROLAC TROMETHAMINE 15 MG/ML VIAL IV SCH (17:11)
[2018-06-03] MEDS: OXYCODONE HCL IR 5 MG TAB (IMMEDIATE RELEASE) PO PRN ×2 (17:13→21:48)
[2018-06-03] MEDS: DOCUSATE SODIUM 100 MG CAP PO SCH (20:52)
[2018-06-03] MEDS ORDERED: ATORVASTATIN 40 MG TAB PO SCH (21:00)
[2018-06-03] MEDS ORDERED: DULOXETINE HCL 20 MG CAP PO SCH (21:00)
[2018-06-03] MEDS ORDERED: SENNA 8.6 MG TAB PO SCH (21:00)
[2018-06-03] MEDS ORDERED: PREGABALIN 50 MG CAP PO SCH (21:00)
[2018-06-04] MEDS: ACETAMINOPHEN 500 MG TAB PO SCH ×3 (00:27→15:24)
[2018-06-04] MEDS: KETOROLAC TROMETHAMINE 15 MG/ML VIAL IV SCH ×3 (00:28→12:22)
[2018-06-04] MEDS: SODIUM CHLORIDE 0.9% 1000ML 1,000 ML IV SCH (02:14)
[2018-06-04 06:18] LABS: Hematocrit (blood only) 30.6 % (37-47); Hemoglobin 9.6 g/dL (12.0-16.0); Immature Granulocytes # (auto) 0.04 K/uL (0.00-0.02); Immature Granulocytes % (auto) 0.3 %; Lymphocytes # (auto) 1.25 K/uL (1.2-3.4); Lymphocytes % (auto) 9.5 %; Mean Corpuscular Hgb Conc 31.4 g/dL (32-36); Mean Platelet Volume 9.2 fL (7.4-10.4); Monocytes # (auto) 1.28 K/uL (0.11-0.59); Monocytes % (auto) 9.7 %; Neutrophils # (auto) 10.64 K/uL (1.4-6.5); Neutrophils % (auto) 80.5 %; Platelet Count 211 K/uL (130-400); RDW Coefficient of Variation 13.7 % (11.5-14.5); RDW Standard Deviation 45.1 fL (36.4-46.3); Red Blood Count 3.44 M/uL (4.2-5.4); White Blood Count 13.21 K/uL (4.8-10.8)
[2018-06-04] MEDS ORDERED: LEVOTHYROXINE SODIUM 88 MCG TABLET PO SCH (06:30)
[2018-06-04 06:51] LABS: BUN Creatinine Ratio 17.9 (10-20); Creatinine Clr Calc Pharmacy 62.5 ml/min; Est GFR (African American) 69.7; Est GFR (Non-African American) 60.1; Potassium 4.1 mmol/L (3.5-5.1)
--- NOTE | 2018-06-04 07:45 | Anesthesiology Progress Note ---
Date of Service June 04, 2018 Anesthesia Post Procedure Vital Signs Vital Signs: Temp Pulse Pulse Resp BP Pulse Ox 06/04/18 07:11 36.5 C 67 18 137/82 96 06/04/18 03:50 36.6 C 68 18 113/71 97 06/03/18 23:11 36.5 C 69 18 129/81 95 06/03/18 19:24 36.7 C 74 18 121/76 96 06/03/18 16:27 36.4 C L 67 20 127/69 100 06/03/18 15:36 36.5 C 65 133/74 99 06/03/18 14:10 18 155/76 H 100 06/03/18 13:45 18 145/78 H 06/03/18 12:59 36.4 C L 55 L 16 155/75 H 100 06/03/18 12:45 54 L 18 145/69 H 100 06/03/18 12:30 36.6 C 55 L 16 131/68 100 06/03/18 12:20 57 L 23 142/70 H 100 06/03/18 12:10 64 14 136/69 100 06/03/18 12:00 36.4 C L 58 L 15 140/78 100 Pain Intensity Right Hip: Pain Intensity: 2 Notes Mental Status: alert / awake / arousable and participated in evaluation Patient Amnestic to Procedure: Yes Nausea / Vomiting: adequately controlled Pain: adequately controlled Airway Patency, RR, SpO2: stable & adequate BP & HR: stable & adequate Hydration State: stable & adequate Neuraxial Anesthesia: was administered and sensory block resolved Anesthetic Complications: no major complications apparent
[2018-06-04] MEDS: DOCUSATE SODIUM 100 MG CAP PO SCH (08:35)
[2018-06-04] MEDS: OXYCODONE HCL IR 5 MG TAB (IMMEDIATE RELEASE) PO PRN (08:42)
[2018-06-04] MEDS ORDERED: ASPIRIN 325 MG ECTAB PO SCH (09:00)
[2018-06-04] MEDS ORDERED: FERROUS SULFATE 325 MG TAB PO SCH (09:00)
[2018-06-04] MEDS ORDERED: DULOXETINE HCL 20 MG CAP PO SCH (09:00)
[2018-06-04] MEDS ORDERED: MULTIVITAMIN TAB PO SCH (09:00)
[2018-06-04] MEDS ORDERED: ATENOLOL 25 MG TABLET PO SCH (09:00)
[2018-06-04] MEDS ORDERED: OLMESARTAN MEDOXOMIL 20 MG TAB PO SCH (09:00)
--- NOTE | 2018-06-04 10:07 | Orthopedic Progress Note ---
Date of Service June 04, 2018 Assessment & Plan (1) Degenerative joint disease (DJD) of hip: Status post right posterior total hip arthroplasty -Ancef x24 -DVT prophylaxis ASA twice daily, SCDs and teds -Weight-bear as tolerated right lower extremity -Posterior hip precautions -Postoperative x-ray demonstrates a well aligned well fixed orthopedic prosthesis without evidence of fracture dislocation -A.m. labs hgb 9.6, acute post op anemia secondary to IO blood loss and dilution effect. Patient asymptomatic, will monitor for now. -DC planning home with home health today vs tomorrow Subjective Post Operative Progress Note Patient seen sitting up in bed, comfortable, denies complaints, pain well controlled, no acute issues. Physical Exam Vital Signs (Past 24 Hours): Last Vital Signs Temp 36.5 C 06/04/18 07:11 Pulse 76 06/04/18 08:37 Resp 18 06/04/18 07:11 BP 129/80 06/04/18 08:37 Pulse Ox 96 06/04/18 07:11 Physical Exam: RLE NVSI +EHL/FHL/TA/GS SILT grossly, +2 DP pulse, compartments soft NT, dressing cdi. Constitutional: WD/WN, vitals as above Results & Data Laboratory Results 06/04/18 06/04/18 06/04/18 Range/Units 06:03 06:03 06:03 WBC 13.21 H (4.8-10.8) K/uL RBC 3.44 L (4.2-5.4) M/uL Hgb 9.6 L (12.0-16.0) g/dL Hct 30.6 L (37-47) % MCV 89.0 (80-100) fL MCH 27.9 (25-34) pg MCHC 31.4 L (32-36) g/dL RDW Std Deviation 45.1 (36.4-46.3) fL RDW Coeff of Jassi 13.7 (11.5-14.5) % Plt Count 211 (130-400) K/uL MPV 9.2 (7.4-10.4) fL Immature Gran % (Auto) 0.3 % Neut % (Auto) 80.5 % Lymph % (Auto) 9.5 % [place] % (Auto) 9.7 % Eos % (Auto) 0.0 % Baso % (Auto) 0.0 % Immature Gran # (Auto) 0.04 H (0.00-0.02) K/uL Neut # (Auto) 10.64 H (1.4-6.5) K/uL Lymph # (Auto) 1.25 (1.2-3.4) K/uL [place] # (Auto) 1.28 H (0.11-0.59) K/uL Eos # (Auto) 0.00 (0-0.5) K/uL Baso # (Auto) 0.00 (0-0.2) K/uL Sodium 141 (136-145) mmol/L Potassium 4.1 (3.5-5.1) mmol/L Chloride 110 H (98-107) mmol/L Carbon Dioxide 27 (21-32) mmol/L Anion Gap 4.0 (3-11) BUN 18 (7-18) mg/dl Creatinine 0.98 (0.6-1.2) mg/dl Est Cr Clr Drug Dosing 62.5 ml/min Est GFR ( Amer) 69.7 Est GFR (Non-Af Amer) 60.1 BUN/Creatinine Ratio 17.9 (10-20) Glucose 128 H (70-99) mg/dl Calcium 8.0 L (8.5-10.1) mg/dl Hepatitis C Ab Screen Neg (Neg)
[2018-06-04] MEDS ORDERED: CeleBREX 200 MG CAP PO SCH (21:00)
--- NOTE | 2018-06-05 20:49 | Discharge Summary ---
Date of Service June 05, 2018 Admission HPI Per Admitting Provider The patient is a 67 year old female who presents with complaints of severe right hip pain and DJD. The patient has failed outpatient conservative treatments to this point which included Nsaids, [place] corticosteroid inj, home exercise/walking program. The patient's pain and limited function have progressed to the point where they severely hinder their activities of daily living and they no longer tolerate exercise programs. They are requesting to proceed with total hip replacement surgery. Principal Diagnosis Right total hip replacement Discharge Exam RLE NVSI +EHL/FHL/TA/GS SILT grossly, +2 DP pulse, compartments soft NT, dressing cdi. Constitutional WD/WN, vitals as above Eyes PERRL, conjunctivae normal, anicteric sclerae ENMT external ear and nose normal, oropharynx normal Neck trachea midline, no thyromegaly Respiratory normal respiratory effort, lungs clear to auscultation Cardiovascular RRR, no murmur, no edema Gastrointestinal (Abdomen) normal bowel sounds, soft, nontender, no hepatosplenomegaly Musculoskeletal no cyanosis or clubbing, extremities motor strength 5/5 Skin no rashes, warm and dry Neurologic patellar DTR's 2+ bilat, sensation intact Psychiatric A+Ox3, euthymic affect Lymphatic no cervical or axillary lymphadenopathy Discharge Data Allergies Allergy/AdvReac Type Severity Reaction Status Date / Time gabapentin AdvReac Mild light Verified 06/03/18 07:23 headed and dizzy Penicillins AdvReac Mild LOCALIZED Verified 06/03/18 07:23 RXN TO INJECTION, TOLERATED PO DOSING Consultations 06/04/18 08:00 Consult Case Management - Discharge Planning Routine Procedures Performed Operation Date: 06/03/18 09:20 Actual Procedures p Right Total Hip Arthroplasty, Uncemented(Right) - Octavio Jung DO [facility] Course (1) Degenerative joint disease (DJD) of hip: The patient is a 67 -year-old female who presents with long standing history of severe right DJD and failed outpatient conservative treatments including NSAIDs, bracing, injections and home walking/exercise program. The patient's symptoms have progressed to the point where it has been difficult to perform even normal activities of daily living. I indicated the patient for a right total hip arthroplasty, the risks, benefits and complications of the procedure include but not limited to infection, bleeding, damage to bone, nerves, vessels, surrounding soft tissue, may develop blood clots, loss of function, leg length discrepancy, dislocation, failure of the components, loosening of the components, the need for additional surgery and . The patient wished to proceed with surgery at this time and informed consent was obtained. Hospital Course: On 06/03/18 the patient was taken to the operating room, adequate anesthesia administered and underwent a right total hip arthroplasty. The patient tolerated the procedure well and was taken to the PACU in stable condition. Post-operatively the patient was started on a DVT ppx medication and given appropriate IV antibiotics. Consults were placed to physical therapy, occupational therapy and case management. On POD#1, the patient did well overnight and their pain was well controlled. Labs were drawn and the Hgb was 9.6. The patient progressed well with PT. Dressings were changed at this time and the incision was clean, dry and intact. The patients hospital stay was relatively uneventful and they were deemed stable by the orthopedic team and consultants to be discharged home with on 06/04/18. Discharge Instructions: Upon discharge the patient may weight bear as tolerates through their operative extremity. They were instructed to keep the incision clean and dry at all times. The patient may shower but should not submerge the incision, avoid bathing, pools and hot tubes. The patient was given a script for pain medication and should take as instructed. The patient was given a script for DVT ppx ASA 325mg BID and should take as directed. The patient was instructed to not drive or travel for long distances until cleared to do so. If the patient develops any symptoms of fevers, chills, nausea, vomiting, increased redness, swelling, pain or drainage from the surgical site, they should notify the office and/or proceed to the nearest emergency room. The patient should follow up in 10-14 days after surgery for their routine post-operative follow-up appointment and should call the office to confirm the date and time. Status post right posterior total hip arthroplasty -Ancef x24 -DVT prophylaxis ASA twice daily, SCDs and teds -Weight-bear as tolerated right lower extremity -Posterior hip precautions -Postoperative x-ray demonstrates a well aligned well fixed orthopedic prosthesis without evidence of fracture dislocation -A.m. labs hgb 9.6, acute post op anemia secondary to IO blood loss and dilution effect. Patient asymptomatic, will monitor for now. -DC planning home with home health today vs tomorrow Total Time Total Time Spent Total Time Spent (In Minutes): >60 minutes Total Time Includes: Examination of the Patient, Discharge Planning, Medication Reconciliation and Communication With Other Providers Discharge Plan Discharge Items Patient Disposition: Home - Home Health Services Reason For Visit: RIGHT HIP OSTEOARTHRITIS Discharge Diagnosis: Right total hip replacement Condition: Good Discharge Goals: Decrease discomfort, Improve function, Increase independence and Therapeutic intervention Activity: Per 'Additional Instructions' section Lifting: Wait until after follow-up appointment Bathing Comment: No bathing, pools or hot tubs Sexual Activity: Wait until after follow-up appointment Exercise/Sports: Wait until after follow-up appointment Driving/Machine Use Comment: Do not drive till cleared by your surgeon Weightbearing: Right weightbearing Non-emergency contact: Primary Care Provider and Surgeon Call non-emergency contact if: you have any medication questions, your symptoms worsen, your pain is not controlled, your pain is worsening, your pain is unusual for you, your pain is concerning for you, you have a fever, your temperature is above 101, your wound has increased redness, your wound has increased drainage and your wound pain has increased Follow-up/Referrals: Misty Cortes CRNP [Primary Care Provider] - Diet: Regular Addtl Provider Instructions: ACTIVITY RECOMMENDATIONS: SELF CARE INSTRUCTIONS AFTER TOTAL HIP REPLACEMENT Until the incision and soft tissues around your hip have healed, there is a possibility that the hip prosthesis could dislocate. A. Observe the following precautions to prevent dislocation: 1. Don't bend your hip greater than 90 degrees. 2. Avoid crossing your legs or ankles while standing or lying. 3. Sit with your feet placed 6 inches apart. 4. When sitting, keep your knees below your hips. Sit on a firm surface, avoid deep, soft chairs and couches. Use an elevated toilet seat in the bathroom. 5. Don't bend over at the waist. Use a long handled shoehorn and a sock aid to help you put on your shoes and socks. A national account director can help you picker and packer objects that are too high or too low to reach. 6. Keep car riding to a minimum for at least one month after surgery. B. Your balance may be shaky for a while. Use crutches or a walker until directed by your doctor. C. Use hand rails when walking on stairs. D. Wear low heeled shoes with non-slip soles. E. Be sure that your floors are free of things that could trip you - throw rugs, electrical cords, small objects. Avoid wet and waxed floors, especially with crutches and canes. F. Try to walk several times a day with rest periods between. G. Continue with all the exercises taught to you in the hospital. Again, make walking a part of your daily routine. SPECIAL CARE INSTRUCTIONS: VERY IMPORTANT TO READ AND REVIEW A. You may still be at risk for phlebitis and blood clots. 1. Wear surgical stockings (MARINO hose) for 2 weeks after surgery to improve circulation and reduce swelling. 2. Take Aspirin 325mg twice daily for 4 weeks or as directed by your doctor. This is your blood thinner. 3. High risk patients may be prescribed a stronger blood thinner if necessary. 4. If you are on Coumadin normally, your family doctor/plater supervisor should monitor your blood work. Expect a phone call the day of or the day after bloodwork is drawn to adjust your dosage. B. You must take antibiotics before having dental work, bladder, bowel and other surgery. Your doctor will provide you with a permanent card to carry describing precautions. C. Call [facility] if you have a fever, redness or swelling around the incision, cloudy drainage from incision, or sudden increase in pain in your hip, not relieved by your regular pain medication. D. Please call the office at if you have any concerns or questions about your operation or recovery. * YOU MAY SHOWER, NO TUB BATHS UNTIL CLEARED BY YOUR DOCTOR. * WEAR MARINO HOSE 20 HOURS PER DAY FOR 2 WEEKS. * YOU SHOULD USE A WALKER OR CRUTCHES FOR 2-4 WEEKS. THIS WILL HELP PREVENT STRAIN ON YOUR HIP MUSCLE AND ALLOW IT TO HEAL PROPERLY. YOU MAY WEAN TO A CANE TOLERATED. * MOST PATIENTS WILL HAVE HOME NURSING FOR THERAPY. IF YOU DECIDE TO DO OUTPATIENT PHYSICAL THERAPY, PLEASE SCHEDULE THIS 3 TIMES PER WEEK. *Iliana incisional vac is a special dressing covering your incision. This dressing provides a sterile dry environment while you are healing. The dressing is to be left in place for 7 days post-operatively. Your home nurse or surgeon will remove. If you develop any redness or blisters or have any questions notify your surgeon immediately. IF INCISION IS LEAKING THROUGH DRESSING, PLEASE CALL THE OFFICE . FOLLOW UP VISIT: If appointment is not already scheduled: Please call [facility] to make a follow-up appointment for 2 weeks after your surgery at . Prescriptions: New aspirin 325 mg Tablet,Delayed Release (Dr/Ec) 325 mg PO BID 28 Days Qty: 56 RF: 0 celecoxib [Celebrex] 200 mg Capsule 200 mg PO BID PRN (Reason: pain) Qty: 28 RF: 0 oxycodone 5 mg Tablet 5 mg PO Q6H MDD 6 tabs PRN (Reason: pain) Qty: 30 RF: 0 sennosides [Senokot] 8.6 mg Tablet 17.2 mg PO HS PRN (Reason: constipation) Qty: 28 RF: 0 acetaminophen [Pain Reliever] 500 mg Tablet 1,000 mg PO Q8H PRN (Reason: pain) Qty: 90 RF: 0 Continued atorvastatin 40 mg Tablet 40 mg PO PM RF: 0 atenolol 25 mg Tablet 25 mg PO QAM RF: 0 cyanocobalamin (vitamin B-12) 1,000 mcg Tablet 1,000 mcg PO DAILY RF: 0 ascorbic acid (vitamin C) [Vitamin C] 500 mg Tablet 500 mg PO DAILY RF: 0 ferrous sulfate [iron] 325 mg (65 mg iron) Tablet 325 mg PO DAILY RF: 0 docusate sodium [Stool Softener] 100 mg Capsule 100 mg PO DAILY PRN (Reason: Constipation) RF: 0 magnesium 250 mg Tablet 250 mg PO DAILY RF: 0 olmesartan [Benicar] 20 mg Tablet 10 mg PO QAM RF: 0 multivitamin with minerals Capsule 1 cap PO DAILY RF: 0 duloxetine 20 mg Capsule,Delayed Release(Dr/Ec) 1 tab PO QAM RF: 0 duloxetine 20 mg Capsule,Delayed Release(Dr/Ec) 2 tab PO HS RF: 0 Calcium 600 + D(3) 600 mg calcium- 200 unit Capsule 1 cap PO DAILY RF: 0 Lyrica 50 mg Capsule 50 mg PO PM RF: 0 biotin 2,500 mcg Capsule 2,500 mcg PO DAILY RF: 0 levothyroxine 88 mcg Capsule 88 mcg PO QAM RF: 0 clobetasol 0.025 % Cream 1 applic TOPICAL BID PRN (Reason: NEEDED) RF: 0 Discontinued celecoxib 200 mg Capsule 200 mg PO QAM RF: 0 clindamycin HCl 300 mg Capsule 300 mg PO UD PRN (Reason: BEFORE DENTAL WORK) RF: 0 aspirin [Aspir-Low] 81 mg Tablet,Delayed Release (Dr/Ec) 81 mg PO DAILY RF: 0 Stand-Alone Forms: [facility] Discharge Orders: Discharge Order (Routine); Ordered 06/04/18 Ordered By: Torsten Fonseca Admission Data Admit Date/Time: 06/03/18 12:15 Attending Provider: Octavio Jung Admit Provider: Octavio Jung Primary Care Provider: Misty Cortes Service: Surgical Services Other Interventions: Discharge Summary Assessment (RN) Last Done: 06/04/18 17:41 DC Date/Time DO NOT enter until pt leaves facility: 06/04/18 17:40
== END 2018-06-04 17:40 | disposition home health service (06) | DRG 470 ==
LOC: ASU 06:27 → 3E 12:15